=== PATIENT | male | born 1975 | race Caucasian/White ===

== ENCOUNTER 2016-07-19 14:37 | Emergency (ER) | payer MEDICAID ==
--- NOTE | 2016-07-22 09:12 | ER ---
ADMIT: 07/19/2016 RM/LOC: ER [facility] MR#: [id number] [id number] [place], [place] [id number] LUCINDA FALCON [address] [place] [address] Emergency Room Report SEX: M AGE: 41 : 1975 DATE: 07/19/2016 ADDENDUM: Mr. Dominguez is a patient of Dr. Sanchez from [facility]. He presents to the emergency room today with bilateral swelling of his legs. The situation is that as soon as I go in the room to talk to him, he is on the phone. I asked him if he wanted me to come back, he said no, and hung up the phone and proceeded to tell me what was going on with him but never addressed his eyes. He does not even know what I look like actually. He would not look at me. His significant other was sitting on the side. Every time I asked a question, he would look at her like he was annoyed, make faces, and discussed about what I was asking him until I finally told him that the reason I was asking questions is so I could get a thorough understanding of what is going on and how I can best help him because his swollen legs do require therapy as well as his rash in his skin which he blames on an allergic reaction to Levaquin and/or cefdinir. He did go to [facility] and had a followup there where he was very disgusted because they took too long in the ER and they were triaging people in the waiting area and even drawing blood in the waiting area. He said he spent too much time waiting there, he finally got up and left. He had already had a prescription for cefdinir and Levaquin and so we do not know what is causing him his rash. So as I am talking to him trying to make sense out of his history, I asked him if he had any chance to stop to get any Benadryl to help with the itch since this is the first thing he asked when he got to the emergency room, he got annoyed by the question. He says the reason he is in the ER is so he could get the medication that he needed, no he did not have time to stop and then he proceeded to say I know where this conversation is going on. I say, "Yeah you know where it is going, I need information and I am going to ask and I am going to need you to answer the questions." Well, at that point, I understand that he was super annoyed, so my phone rang and this is the hospital phone. I was expecting a call from Interventional Radiology. I excused myself from the patient and proceeded to talk to the radiologist trying to see if I could just make the phone call very short and then call them back. While I was talking to Radiology, the patient ADMIT: 07/19/2016 RM/LOC: ER [facility] MR#: [id number] [address] [place] [id number] LUCINDA FALCON [address] [place] [address] Emergency Room Report SEX: M AGE: 41 : 1975 got up, started putting his clothes on and as I stopped the telephone conversation with Radiology, I looked at him and his girlfriend and I asked where was he going and why was he getting dressed. They both looked at me with a menacing look and pointed fingers at me saying that I was rude, that the reason he was leaving was because I had answered the phone while I was with them in the room. I proceeded then to leave the room when he shouted that he needed to see another provider and my telephone call was extremely important on a patient with possible meningitis, so I left the room and let Dr. Fletcher take care of the situation. The patient does have chronic issues with pain and we did contact his primary provider, Dr. Charu Cavazos, who is the provider he went to see today and decided to stop by the hospital here to see if we could help him with the situation. STEFANIE Robb / Zac Fletcher MD / sandrita JOB #: [id number] CC: aZc Fletcher MD, Attending Physician Marquis Sanchez DO, Family Physician
--- NOTE | 2016-08-07 11:50 | ER ---
ADMIT: 07/19/2016 RM/LOC: ER [facility] MR#: [id number] [address] [address] LUCINDA FALCON [address] [place] [address] Emergency Room Report SEX: M AGE: 41 : 1975 DATE: 07/19/2016 ADDENDUM: This is a 41-year-old white male, who had came in with rash and swelling of his legs. For some reason, he had a little bit of a confrontation with our PA. We refer you to her dictation. 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 His main problem is a rash from the Cipro that he was put on for apparent pneumonia. The chest x-ray we did show no signs of pneumonia, so he should stop that. We gave him Decadron 20 IM, epi 0.5 mg IM, and Benadryl 50 mg IM. He cleared up much better. We discharged him home with prednisone 20 b.i.d. x4 days, start in the a.m. He has also been complaining of swelling in his legs. We did an ultrasound of his legs because it continued to bother him and causing pain. The ultrasound of his legs bilaterally was negative. He was concerned about the swelling in his feet. I thought that could be from the allergic reaction to the antibiotics and also has some dependent edema. He did have Lasix that he takes occasionally for his doctor. He is to elevate his legs, see his doctor next week, Dr. Sanchez in [place]. I did warn him about the use of Lasix just for swelling and decreased potassium. He was advised of this and understands. CONDITION ON DISCHARGE: Improved. Zac Fletcher MD/ sandrita JOB #: [id number] CC: Zac Fletcher MD, Attending Physician Marquis Sanchez DO, Family Physician
== END 2016-07-19 18:40 | disposition home or self-care (01) ==
LOC: ER 14:37
DX: T78.3XXA Angioneurotic edema, initial encounter (principal); L27.0 Generalized skin eruption due to drugs and medicaments taken internally; F17.210 Nicotine dependence, cigarettes, uncomplicated; Z88.0 Allergy status to penicillin; Z88.7 Allergy status to serum and vaccine; Z88.8 Allergy status to other drugs, medicaments and biological substances; Z79.899 Other long term (current) drug therapy